=== PATIENT | male | born 1975 | race Two or more races ===

== ENCOUNTER 2019-09-29 16:04 | Emergency (ER) | payer SELFPAY ==
[2019-09-29 16:15] VITALS: BP 116/73; PULSE 89; TEMP 97.9; BMI 28.5
--- NOTE | 2019-09-29 16:55 | PDOC ---
History of Present Illness - General Chief Complaint: Abscess Boil Stated Complaint: CYST ON COCCYX Time Seen by Provider: 09/29/19 16:20 History Source: Patient - History of Present Illness Timing/Duration: reports: other Location: reports: other (tailbone) Past History - Past Medical History Allergies/Adverse Reactions: Allergies Allergy/AdvReac Type Severity Reaction Status Date / Time No Known Allergies Allergy Verified 09/29/19 16:15 Home Medications: Ambulatory Orders Clindamycin [Cleocin -] 300 mg PO Q6HPO #28 capsule 09/29/19 Ibuprofen [Motrin -] 600 mg PO QID #28 tablet 09/29/19 COPD: No - Psycho Social/Smoking Cessation Hx Smoking History: Current every day smoker Information on smoking cessation initiated: No Review of Systems - Review of Systems Constitutional: No: Chills, Fever *Physical Exam - Vital Signs Last Vital Signs Temp Pulse Resp BP Pulse Ox 97.9 F 89 18 116/73 99 09/29/19 16:12 09/29/19 16:12 09/29/19 16:12 09/29/19 16:12 09/29/19 16:12 - Physical Exam General Appearance: Yes: Appropriately Dressed, Mild Distress HEENT: positive: Normal Voice Neck: positive: Supple Integumentary: positive: Dry, Warm, Other (~6x4 cm fluctuant abscess to tailbone , no overlying erythema) Neurologic: positive: Fully Oriented, Alert, Normal Mood/Affect Procedures - Incision and Drainage I&D Site: Bilateral: Buttock (pilonidal abscess) Volume(ml): 10 Blade Size: 11 Attempts: 1 (w/ copious purulent, foul smelling discharge) Iodinated Packin/4 in Dressing: Yes (bacitracic, xeroform, dressing) Medical Decision Making - Medical Decision Making 09/29/19 16:56 43-year-old male history of recurrent pilonidal abscess, here with progressive pain and swelling over tailbone x a week and a half. Has been applying warm compresses with no improvement. No fever or chills see exam Pilonidal abscess Recurent S/p I&D today Tetanus UTD -Dc w/ abx, pain control -Wound check to remove placing in 2 days -Surgery f/u given Discharge - Discharge Information Problems reviewed: Yes Clinical Impression/Diagnosis: Pilonidal abscess Condition: Improved Disposition: HOME - Additional Discharge Information Prescriptions: Clindamycin [Cleocin -] 300 mg PO Q6HPO #28 capsule Ibuprofen [Motrin -] 600 mg PO QID #28 tablet - Follow up/Referral Referrals: Jim Toribio MD [Staff Physician] - - Patient Discharge Instructions Patient Printed Discharge Instructions: DI for Incision and Drainage of a Skin Abscess Additional Instructions: Keep wound dry for 2 days and return to ER for wound check. Take medications as prescribed Call Dr Toribio on Tuesday to make an appointment for your pilonidal cyst - Post Discharge Activity Work/Back to School Note: Back to Work
== END 2019-09-29 16:58 | disposition home or self-care (01) ==
LOC: JERFT 16:04
PROC: 0J990ZZ Drainage of Buttock Subcutaneous Tissue and Fascia, Open Approach (ICD-10-PCS; principal; 2019-09-29)
DX: L05.01 Pilonidal cyst with abscess (principal)
CPT/HCPCS: 99283-25

== ENCOUNTER 2019-10-02 08:19 | Emergency (ER) | payer SELFPAY ==
[2019-10-02 08:25] VITALS: BP 113/74; PULSE 66; TEMP 98; BMI 28.5
--- NOTE | 2019-10-02 08:35 | PDOC ---
Suture Removal/Wound Check HPI - History of Present Illness Chief Complaint: Revisit,Wound Recheck Stated Complaint: F/U Time Seen by Provider: 10/02/19 08:27 History Source: Yes: Patient Exam Limitations: Yes: Clinical Condition Treated at: [facility] ED - Previous ED Treatment Type of procedure performed on last visit: Yes: I&D of Abscess Tetanus Immunization: Yes: Up to Date Antibiotics Prescribed: Yes Past History - Past Medical History Allergies/Adverse Reactions: Allergies Allergy/AdvReac Type Severity Reaction Status Date / Time No Known Allergies Allergy Verified 10/02/19 08:29 Home Medications: Ambulatory Orders Clindamycin [Cleocin -] 300 mg PO Q6HPO #28 capsule 09/29/19 Ibuprofen [Motrin -] 600 mg PO QID #28 tablet 09/29/19 COPD: No - Psycho Social/Smoking Cessation Hx Smoking History: Current every day smoker Number of Cigarettes Smoked Daily: 6 Information on smoking cessation initiated: No Hx Alcohol Use: No Drug/Substance Use Hx: No Suture Removal/Wound Check PE - Physical Exam Laceration/Wound Check Symptoms: reports: Pain. denies: Fever, Chills, Redness , Discharge Current Severity Level: None Location of Laceration/Wound: bilateral: Pelvis (pilonidal abscess) Pain Radiation: None *Review of Systems - Review of Systems Able to Perform ROS?: Yes Constitutional: No: Chills, Fever HEENTM: No: Symptoms Reported Respiratory: No: Symptoms reported Cardiac (ROS): No: Symptoms Reported ABD/GI: No: Symptoms Reported Musculoskeletal: Yes: Symptoms Reported, See HPI. No: Muscle Pain (no pain to abcess area) Integumentary: Yes: Symptoms Reported, See HPI, Lumps (pilonidal abscess drained ) Neurological: No: Symptoms reported All Other Systems: Reviewed and Negative *Physical Exam - Vital Signs Last Vital Signs Temp Pulse Resp BP Pulse Ox 98.0 F 66 16 113/74 96 10/02/19 08:21 10/02/19 08:21 10/02/19 08:21 10/02/19 08:21 10/02/19 08:21 - Physical Exam General Appearance: Yes: Nourished, Appropriately Dressed. No: Apparent Distress HEENT: positive: Normal ENT Inspection Respiratory/Chest: negative: Respiratory Distress, Accessory Muscle Use Musculoskeletal: positive: Normal Inspection Extremity: positive: Normal Inspection Integumentary: positive: Normal Color, Other (well healing incision of pilonidal abscess with wound packing . no erythema to sit. no drainage from wound. 2cm induration to incision site which pt report much improvement prior to I&D) Neurologic: positive: Fully Oriented, Alert, Normal Mood/Affect, Normal Response Medical Decision Making - Medical Decision Making 10/02/19 08:38 Patient with no significant past medical history presents for wound check of pilonidal abscess status post I&D 3 days ago. Patient report improved swelling and pain to event with no pain today to abscess area. Denies fever, chills, body aches. Exam significant for 2 cm duration to sacrum over 1 mm incision with no drainage from abscess. Wound packing in place. No skin erythema or evidence of infection. Packing removed. No drainage from wound or abscess. Bacitracin applied to wound and wound covered with adhesive bandage. Patient stable for discharge with advised to continue prescribed clindamycin antibiotics and apply warm compress to area until healed with topical bacitracin twice a day. Referral given to patient to follow-up with general surgery and patient will call to make an appointment for follow-up. Patient stable for discharge Discharge - Discharge Information Problems reviewed: Yes Clinical Impression/Diagnosis: Pilonidal abscess, Wound check, abscess Condition: Stable Disposition: HOME - Admission No - Follow up/Referral - Patient Discharge Instructions Patient Printed Discharge Instructions: How to Care for a Surgical Wound Additional Instructions: Continue applying warm compress to abscess 2-3 times a day for 5 to 10 minutes as needed for swelling. Apply bacitracin to wound twice a day. Continue taking prescribed antibiotics and finish it. Follow-up referred to general surgeon as instructed - Post Discharge Activity
== END 2019-10-02 08:40 | disposition home or self-care (01) ==
LOC: JERFT 08:19
DX: Z48.817 Encounter for surgical aftercare following surgery on the skin and subcutaneous tissue (principal); Z48.01 Encounter for change or removal of surgical wound dressing
CPT/HCPCS: 99281-25